=== PATIENT | male | born 2000 | race Caucasian/White ===

== ENCOUNTER 2021-04-13 09:48 | Emergency (ER) | payer OTHER, SELFPAY ==
[2021-04-13 09:49] VITALS: BP 155/89; PULSE 77; RESP 18; TEMP 35.9; O2SAT 97; BMI 33.5
--- NOTE | 2021-04-13 10:00 | EKG12_ITS ---
Test Reason : CP Blood Pressure : / mmHG Vent. Rate : 072 BPM Atrial Rate : 072 BPM P-R Int : 126 ms QRS Dur : 102 ms QT Int : 390 ms P-R-T Axes : 038 037 022 degrees QTc Int : 427 ms Normal sinus rhythm with sinus arrhythmia Normal ECG Confirmed by LYNDA BE, FREDDY ([id number]), general expeditor GUSTAVO BRAGG ([id number]) on 04/14/2021 12:58:52 PM Referred By: GONZALEZ Confirmed By:FREDDY HOWELL MD
--- NOTE | 2021-04-13 10:01 | EX.ED.DYSGE1 ---
HPI History of Present Illness Chief Complaint: Chest Pain Informant: patient Narrative Narrative: Patient is a 20-year-old male with a past medical history of high blood pressure who presents to the emergency department for chest pain. He states that this started yesterday. He has had similar episodes before in the past. Is never had a work-up for it. He currently describes his pain as an achy/pressure over the left side of his chest. It does go into his shoulders. He denies any pain in his back or abdomen. He did have some nausea last night but denies this now. He denies any associated shortness of breath. He has not had any heart palpitations. No leg swelling or calf pain. No family history of cardiac disease especially at a young age. He denies any recent illness including any cough, cold, congestion. He does not know aggravating or relieving factors. Exerting himself as well as taking deep breaths does not make his symptoms worse. He denies a smoking history. [facility] Home Medications NK 04/13/21 [History Last Taken Unknown] Allergy/AdvReac Type Severity Reaction Status Date / Time No Known Allergies Allergy Verified 04/13/21 09:49 Social History (Updated 04/13/21 @ 10:06 by Vanda Nguyen) household members: spouse Smoking Status: Never smoker ROS ROS ED Constitutional Constitutional ED: Denies chills or fever(s) Eyes Eyes: Denies change in vision ENT ENT ED: Denies epistaxis or rhinorrhea Cardiovascular Cardiovascular: Reports chest pain; Denies palpitations Respiratory/Chest Respiratory/Chest: Denies cough, dyspnea or dyspnea on exertion Gastrointestinal Gastrointestinal: Denies abdominal pain, diarrhea, nausea or vomiting Musculoskeletal Musculoskeletal: Denies back pain or neck pain Integumentary Denies rash Neurologic Neurologic: Denies dizziness, headache(s) or weakness EXAM Physical Exam Const Vital Signs: 04/13/21 09:49 04/13/21 10:05 04/13/21 11:01 Temperature 96.7 F L Temperature Source Temporal Pulse Rate 77 70 Respiratory Rate 18 16 Respiratory Effort Normal Non-Labored Blood Pressure 155/89 H 124/84 H Blood Pressure Mean 111 Pulse Ox 97 98 Oxygen Delivery Method Room Air Positive well nourished and well developed General Appearance ED: well developed and NAD HEENT Reports normocephalic, head/scalp atraumatic and moist mucous membranes Eyes PERRL and EOMs intact bilaterally Neck supple Chest Wall inspection of chest normal Chest Narrative: Mild tenderness over left chest wall. Resp normal respiratory effort and clear to auscultation bilaterally Auscultation: Negative for rales, rhonchi or wheezes Cardio regular rate, regular rhythm and no murmurs GI normal to inspection, nondistended, normoactive bowel sounds and non-tender Palpation: soft; Negative for guarding or rebound tenderness present Extremity normal to inspection General Extremety ED: Negative for edema or tenderness General Extremity: Negative for edema Neuro CN's II-XII intact bilaterally and no sensory deficits noted Sensorium / Orientation: alert Motor Exam: strength 5/5 throughout Psych mental status grossly normal Skin no rashes or lesions noted MDM MDM MDM Narrative Medical decision making narrative: Patient presents to the ED for left-sided chest pain. Upon arrival to the emergency department is mildly hypertensive but otherwise normal vital signs. He is in no acute distress. Patient's pain is minimally reproducible with palpation of his chest wall. EKG did not show any signs of ischemia or arrhythmia. Will check basic lab work and chest x-ray. With the reproduction of the pain we will treat him with a Naprosyn. Patient's lab work showed an elevated hemoglobin but otherwise no other significant acute abnormality. His troponin is within normal limits. No significant electrolyte abnormality. He has a low heart score. I have very low concern for ACS, PE, aortic catastrophe. At this time recommend symptomatic treatment at home. He is to follow-up with his PCP. Return precautions are reviewed. He needs to have repeat lab testing to monitor his hemoglobin level. This was made aware of the patient. He understands and agreeable this plan. All questions answered. Lab Data Labs: Laboratory Results - last 24 hr 04/13/21 04/13/21 10:04 10:04 WBC 7.2 RBC 6.34 H Hgb 18.0 H* Hct 54.2 H MCV 85.5 MCH 28.4 MCHC 33.2 RDW Std Deviation 39.9 RDW Coeff of Phu 12.8 Plt Count 243 MPV 9.2 Immature Gran % (Auto) 0.400 Neut % (Auto) 54.0 Lymph % (Auto) 31.9 Randolph % (Auto) 9.3 Eos % (Auto) 3.6 Baso % (Auto) 0.8 Absolute Neuts (auto) 3.9 Absolute Lymphs (auto) 2.31 Nucleated RBC % 0 Differential Comment COMMENT Diff Path Review May foll Sodium 139 Potassium 4.0 Chloride 106 Carbon Dioxide 27.0 Anion Gap 6 BUN 15 Creatinine 1.18 Estim Creat Clear Calc 106.36 Est GFR (MDRD) Af Amer 101 Est GFR (MDRD) Non-Af 83 BUN/Creatinine Ratio 12.7 Glucose 89 Calcium 9.4 Troponin I High Sens 4.9 Radiography Diagnostic Testing: Radiology Impression Chest X-Ray 04/13/21 10:05 IMPRESSION: Normal x-ray examination of the chest. Electronically Signed: Lucero Ledesma, at 10:25 EDT Tel , Service support , EKG Initial EKG: Attestation: I personally reviewed and interpreted this EKG as follows: (Rate of 72 bpm in sinus rhythm. Normal intervals. Normal axis. No significant ST elevations or depressions. No T wave inabilities.) Discharge Plan Triage Chief Complaint: Chest Pain ED Provider: Eduard Iniguez Dx/Rx/DC Orders Clinical Impression: Chest pain Instructions: ED Chest Pain, Noncardiac Prescriptions: No Action NK RF: 0 Primary Care Provider: Care Physician,No Primary Referrals: Tray Urban MD [NON-STAFF] - 3-5 Days Care Physician,No Primary [Primary Care Provider] - Disposition Disposition: Home, Self Care Discharge Date/Time: 04/13/21 11:04
--- NOTE | 2021-04-13 10:05 | RAD_ITS ---
STUDY: X-RAY CHEST REASON FOR EXAM: Male, 20 years old. chest pain TECHNIQUE: 1 view COMPARISON: None FINDINGS: The lungs are clear and expanded. There is no demonstrated pleural abnormality. Normal size heart. Normal mediastinum and kacey. Normal visualized pulmonary arteries. Normal visualized aortic arch and descending thoracic aorta. Normal visualized thoracic spine. Normal visualized ribs, clavicles, and shoulders. There is no demonstrated abnormality of the visualized soft tissue structures of the upper abdomen. RAD/Chest 1 View (Portable) IMPRESSION: Normal x-ray examination of the chest. Electronically Signed: Lucero Ledesma, at 10:25 EDT Tel , Service support ,
[2021-04-13] MEDS: Naproxen 500 MG Tablet PO (10:16)
[2021-04-13 10:17] LABS: Absolute Lymphocyte Count 2.31 X10^3/uL (0.83-4.51); Absolute Neutrophil Count 3.9 X10^3/uL (2.0-7.7); Basophil# 0.06 X10^3/uL; Basophil% 0.8 % (0-1); Eosinophil# 0.26 X10^3/uL; Eosinophils% 3.6 % (0-5); Hematocrit 54.2 % (40-54); Lymphocyte # 2.31 X10^3/ul (0.83-4.51); Lymphocyte % 31.9 % (19-41); Mean Corp Hgb Conc 33.2 g/dL (32-36); Mean Corpuscular Hgb 28.4 pg (27.0-32.0); Mean Corpuscular Volume 85.5 fL (80-94); Mean Platelet Vol. 9.2 fl (6.2-12.0); Monocyte# 0.67 X10^3/uL; Monocyte% 9.3 % (0-10); NRBC Flagged by Analyzer 0 % (0-5); Neutrophil # 3.91 X10^3/uL (2.7-7.7); Platelet Count 243 K/mm3 (150-450); RBC Distribution Width CV 12.8 % (11.6-14.6); RBC Distribution Width SD 39.9 fl (35.1-43.9); Red Blood Count 6.34 M/mm3 (4.6-6.2); White Blood Count 7.2 K/mm3 (4.4-11.0)
[2021-04-13 10:19] LABS: Differential Indicated SCAN CRITERIA MET
[2021-04-13 10:33] LABS: Anion Gap 6 (5-15); BUN 15 mg/dL (7-18); BUN/Creat Ratio 12.7 RATIO (10-20); Calcium,Total 9.4 mg/dL (8.5-10.1); Chloride 106 mmol/L (98-107); Creatinine, Serum 1.18 mg/dL (0.70-1.30); EST Glomerular Filtration Rate 83 mL/min (>60); Est Glom Filt Rate - Afr Amer 101 mL/min (>60); Estimated Creatinine Clearance 106.36 ml/min; Glucose 89 mg/dL (74-106); Sodium Level 139 mmol/L (136-145); Troponin-I HS 4.9 pg/mL (3.0-78.5)
[2021-04-13 11:01] VITALS: BP 124/84; PULSE 70; RESP 16; O2SAT 98
--- NOTE | 2021-04-13 11:01 | ED.RN ---
REVIEWED D/C INSTRUCTIONS, FOLLOW UP CARE, AND S/S THAT WOULD WARRANT A RETURN TO THE ED WITH PT. PT VERBALIZED AN UNDERSTANDING AND DENIES FURTHER QUESTIONS FOR THIS RN. PT SKIN P/W/D, RESP EVEN AND UNLABORED, PT A&O X 3, NO DISTRESS NOTED. PT AMBULATED OUT OF ED, GAIT STEADY.
[2021-04-14 10:13] LABS: Pathologist Review Reviewed
== END 2021-04-13 11:04 | disposition home or self-care (01) ==
PROVIDERS: Emergency Provider Emergency Medicine
DX: R07.9 Chest pain, unspecified (principal); R11.0 Nausea
CPT/HCPCS: 71045; 80048; 84484; 85025; 93005; 99285; A4216